=== PATIENT | male | born 1985 | race American Indian/Alaskan Native ===

== ENCOUNTER 2016-03-21 14:10 | Emergency (ER) | payer OTHER ==
[2016-03-21] MEDS ORDERED: NORCO 5/325 PO ONE (17:56)
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
[2016-03-21 18:41] VITALS: BP 159/103
== END 2016-03-21 18:41 | disposition home or self-care (01) ==
LOC: ED 14:10
DX: S16.1XXA Strain of muscle, fascia and tendon at neck level, initial encounter (principal); S39.012A Strain of muscle, fascia and tendon of lower back, initial encounter; M79.1 Myalgia; F17.200 Nicotine dependence, unspecified, uncomplicated; V49.49XA Driver injured in collision with other motor vehicles in traffic accident, initial encounter; Y93.9 Activity, unspecified; Y92.9 Unspecified place or not applicable; Y99.9 Unspecified external cause status
CPT/HCPCS: 99282